=== PATIENT | male | born 1965 | race Caucasian/White ===

== ENCOUNTER → 2018-08-28 | Outpatient (CLI) | payer BC ==
[~2018-08-28] MED LIST: CATHETER FLUSH 10 ML SYR IV PRN; REGADENOSON 0.4 MG/5 ML SYR (LEXISCAN) IV ONE
[2018-08-28 08:38] VITALS: BP 133/87
[2018-08-28 08:42] VITALS: BP 165/91
--- NOTE | 2018-08-31 13:42 | STRESS TEST ---
DATE OF SERVICE: 08/28/2018 RESTING AND POST REGADENOSON TECHNETIUM-99M TETROFOSMIN SPECT CT IMAGING ORDERING PHYSICIAN: Iwoan Winston APRN. PRIMARY PHYSICIAN: [facility]. CLINICAL DIAGNOSIS: Coronary artery disease. Baseline images were carried out after injection of 10.65 mCi technetium-99m Tetrofosmin. This was followed by 0.4 mg Regadenoson and 29.2 mCi of technetium-99m Tetrofosmin for stress imaging. The electrocardiogram showed sinus rhythm with old anteroseptal myocardial infarction. The electrocardiogram did not change significantly with the Regadenoson infusion. He reported fullness in the head and the chest following Regadenoson infusion, which resolved in a few minutes. Review of images at rest and following stress indicates an apical perfusion defect that is predominantly fixed. Gated images show apical akinesis. Left ventricular ejection fraction is calculated to be 55%. Left ventricular end diastolic volume is 132 mL. TID is absent (1.02). CONCLUSIONS: 1. Apical infarction with minimal josh-infarct ischemia. 2. Apical akinesis. 3. Left ventricular ejection fraction is calculated to be 55%. 4. Moderate cardiomegaly. Job ID: [id number] DocumentID: [id number] Dictated Date: 08/31/2018 13:14:28 Top Icer Date: 08/31/2018 13:42:14 Dictated By: NII MCKNIGHT MD, MA, FACP, FACC,
== END ==
LOC: CARD 06:38
PROVIDERS: ATTEND Nurse Practitioner Family
DX: I25.10 Atherosclerotic heart disease of native coronary artery without angina pectoris (principal); I11.9 Hypertensive heart disease without heart failure; E78.5 Hyperlipidemia, unspecified
CPT/HCPCS: 78452; 93017

== ENCOUNTER → 2018-09-25 | Outpatient (CLI) | payer BC | LOC: CARD 12:42 → EDUNIT# 13:00 | PROVIDERS: ATTEND Nurse Practitioner Family | DX: I25.10 Atherosclerotic heart disease of native coronary artery without angina pectoris (principal); I10 Essential (primary) hypertension; E78.5 Hyperlipidemia, unspecified | CPT/HCPCS: 93306 ==

== ENCOUNTER → 2022-04-02 | Outpatient (CLI) | payer BC ==
[2022-04-02 13:09] LABS: POTASSIUM 4.1 MMOL/L (3.6-5.0)
[2022-04-02 13:10] LABS: CALCIUM 9.2 MG/DL (8.5-10.1); CREATININE SERUM 0.92 MG/DL (0.60-1.30); MAGNESIUM 1.3 MG/DL (1.6-2.4)
== END ==
LOC: LAB FS 12:23
PROVIDERS: ATTEND Nurse Practitioner Family
DX: R25.2 Cramp and spasm (principal)
CPT/HCPCS: 36415; 80048; 83735